=== PATIENT | female | born 2000 | race African-American/Black ===

== ENCOUNTER 2018-04-25 00:44 | Emergency (ER) | payer MEDICAID ==
[~2018-04-25] VITALS: Ht 170.2 cm; Wt 100.0 kg
[2018-04-25] MEDS ORDERED: BUPIVACAINE HCL/PF 0.25% 10 ML VIAL INJ ONE (01:30)
[2018-04-25 02:27] VITALS: BP 114/76
== END 2018-04-25 02:28 | disposition home or self-care (01) ==
LOC: EMS 00:44
DX: L02.31 Cutaneous abscess of buttock (principal)
CPT/HCPCS: 10060; 99283; J3490